=== PATIENT | male | born 1970 | race Two or more races ===

== ENCOUNTER 2020-07-12 20:21 | Emergency (ER) | payer SELFPAY ==
[2020-07-12] MEDS ORDERED: HYDROCODONE/ACETAMINOPHEN 5-325 MG TABLET PO ONE (20:48)
--- NOTE | 2020-07-12 20:51 | ER Document Report ---
ED Medical Screen (RME) - General Chief Complaint: Abdominal Pain Stated Complaint: SHORTNESS OF BREATH Time Seen by Provider: 07/12/20 20:44 Mode of Arrival: Wheelchair Information source: Patient Notes: With sudden onset of right upper quadrant right lower chest pain about an hour prior to arrival. Patient denies any cough, nausea vomiting or diarrhea. Patient without any fever. Patient denies any injury. Patient denies any urinary symptoms. Pain increases with deep inspiration or movement. Patient without any significant underlying medical history. I have greeted and performed a rapid initial assessment of this patient. A comprehensive ED assessment and evaluation of the patient, analysis of test results and completion of the medical decision making process will be conducted by additional ED providers. - Related Data Allergies/Adverse Reactions: No Known Allergies Allergy (Unverified 07/12/20 20:46) Past Medical History - Social History Frequency of alcohol use: None Drug Abuse: None Physical Exam - Vital signs Vitals: Temp Pulse Resp BP Pulse Ox 98.2 F 91 24 H 130/69 H 89 L 07/12/20 20:35 07/12/20 20:35 07/12/20 20:35 07/12/20 20:35 07/12/20 20:35 - General General appearance: Alert In distress: Moderate Notes: Patient appears uncomfortable, splinting with inspiration. - Respiratory Respiratory status: Tachypnea Breath sounds: Other - Diminished to right lower lobe and left lower lobe Course - Vital Signs Vital signs: Temp Pulse Resp BP Pulse Ox 98.2 F 91 24 H 130/69 H 89 L 07/12/20 20:35 07/12/20 20:35 07/12/20 20:35 07/12/20 20:35 07/12/20 20:35
[2020-07-12 21:30] LABS: ABSOLUTE BASOPHILS # (AUTO) 0.1 10^3/uL (0.0-0.2); ABSOLUTE EOSINOPHILS # (AUTO) 0.3 10^3/uL (0.0-0.6); ABSOLUTE LYMPHOCYTES (AUTO) 1.5 10^3/uL (0.5-4.7); ABSOLUTE MONOCYTES (AUTO) 0.5 10^3/uL (0.1-1.4); BASOPHILS % (AUTO) 0.7 % (0-2); EOSINOPHILS % (AUTO) 2.8 % (0-6); HEMATOCRIT 39.5 % (37.9-51.0); HEMOGLOBIN 13.8 g/dL (13.5-17.0); LYMPHOCYTES % (AUTO) 14.5 % (13-45); MEAN CORPUSCULAR HEMOGLOBIN 28.8 pg (27.0-33.4); MEAN CORPUSCULAR HGB CONC 34.9 g/dL (32.0-36.0); MEAN CORPUSCULAR VOLUME 83 fl (80-97); PLATELET COUNT 203 10^3/uL (150-450); RED BLOOD COUNT 4.77 10^6/uL (4.35-5.55); RED CELL DISTRIBUTION WIDTH 13.7 % (11.5-14.0); TOTAL CELLS COUNTED % (AUTO) 100 %; WHITE BLOOD COUNT 10.4 10^3/uL (4.0-10.5)
--- NOTE | 2020-07-12 21:31 | RADIOLOGY REPORT (SQ) ---
EXAM DESCRIPTION: XR ABDOMEN SUPINE AND ERECT WITH CHEST (ABD ACUTE SERIES) COMPLETED DATE/TME: 07/12/2020 21:02 CLINICAL HISTORY: 50 years, Male, RUQ pain COMPARISON: None. TECHNIQUE: Chest x-ray upright and supine views of the abdomen. FINDINGS: Chest x-ray without significant acute findings. Suspected small left lower lobe atelectasis. No evidence for subdiaphragmatic free air. Moderately distended stomach with fluid. Suspected increased fluid in small bowel loops without definite dilatation. [id number] increased colonic stool greater on the right colon. IMPRESSION: 1. Small left lower lobe atelectasis. 2. Nonspecific bowel pattern with increased fluid in stomach and small bowel loops and mild increased colonic stool. No overt significant finding.
[2020-07-12 21:42] LABS: APPEARANCE,URINE SLIGHTLY-CLOUDY; BILIRUBIN,URINE NEGATIVE (NEGATIVE); COLOR,URINE YELLOW; GLUCOSE, URINE NEGATIVE (NEGATIVE); KETONES,URINE NEGATIVE (NEGATIVE); LEUKOCYTE ESTERASE,URINE NEGATIVE (NEGATIVE); NITRITE,URINE NEGATIVE (NEGATIVE); PROTEIN,URINE NEGATIVE (NEGATIVE); URINE SPECIFIC GRAVITY 1.024; UROBILINOGEN,URINE NEGATIVE mg/dL (<2.0)
[2020-07-12 21:48] LABS: ALBUMIN 4.5 g/dL (3.5-5.0); ALKALINE PHOSPHATASE 51 U/L (38-126); ANION GAP 11 (5-19); ASPARTATE AMINO TRANSFERASE 23 U/L (17-59); BILIRUBIN,TOTAL 0.5 mg/dL (0.2-1.3); BLOOD UREA NITROGEN 15 mg/dL (7-20); CALCIUM 9.5 mg/dL (8.4-10.2); CARBON DIOXIDE 22 mmol/L (22-30); CHLORIDE 105 mmol/L (98-107); GLUCOSE 130 mg/dL (75-110); TOTAL PROTEIN 6.8 g/dL (6.3-8.2)
--- NOTE | 2020-07-12 21:49 | ER Document Report ---
ED General - General Chief Complaint: Abdominal Pain Stated Complaint: SHORTNESS OF BREATH Time Seen by Provider: 07/12/20 20:44 Mode of Arrival: Wheelchair - HPI Notes: Patient is a 50-year-old male who presents with shortness of breath and right- sided chest and abdominal pain. It started just prior to arrival in the ER. It is pleuritic. He has pain to his right lower ribs, right upper quadrant, right lower quadrant of his abdomen. It is worse with palpation. He denies any recent illnesses. No cough or cold symptoms. No GI symptoms. No urinary symptoms. No fevers or chills. No abdominal surgeries. Never had any cardiac issues. Non-smoker. - Related Data Allergies/Adverse Reactions: No Known Allergies Allergy (Unverified 07/12/20 20:46) Past Medical History - General Information source: Patient - Social History Smoking Status: Never Smoker Frequency of alcohol use: None Drug Abuse: None Family History: Reviewed & Not Pertinent Patient has homicidal ideation: No Review of Systems - Review of Systems Notes: CONSTITUTIONAL: No fever, fatigue or weight loss. SKIN: No rash. HENT: No congestion, ear pain, or sore throat. EYES: No recent vision problems or eye pain. CARDIOVASCULAR: No edema. Positive for right-sided rib pain. RESPIRATORY: No cough, congestion, or wheezing. Positive for shortness of breath with deep breathing. GASTROINTESTINAL: No nausea, vomiting, bloody stools or diarrhea. Positive for right upper and lower quadrant abdominal pain. GENITOURINARY: No dysuria. MUSCULOSKELETAL: No joint pain or swelling. NEUROLOGIC: No seizures. No headache, focal weakness or sensory changes. HEMATOLOGIC: No unusual bruising or bleeding. PSYCHIATRIC: No depression or anxiety. Physical Exam - Vital signs Vitals: Temp Pulse Resp BP Pulse Ox 98.2 F 91 24 H 130/69 H 89 L 07/12/20 20:35 07/12/20 20:35 07/12/20 20:35 07/12/20 20:35 07/12/20 20:35 - General General appearance: Appears well Notes: VITAL SIGNS: Within normal limits. GENERAL: No acute distress, non-toxic appearance. HEAD: Normal with no signs of head trauma. EYES: EOMI, conjunctiva normal, no discharge. EARS: Hearing grossly intact. NECK: Normal range of motion, no tenderness, supple, no lymphadenopathy, No adenopathy, no JVD. CHEST: Clear breath sounds bilaterally. No wheezes, rales, or rhonchi. CARDIAC: Regular rate and rhythm. S1 and S2, without murmurs, gallops, or rubs. VASCULAR: No Edema. ABDOMEN: Abdomen is soft. No rigidity or guarding. Discomfort to palpation of right upper and lower quadrant. GENITOURINARY: Normal, No tenderness LYMPATHTIC: No lymphadenopathy noted. MUSCULOSKELETAL: Good range of motion of all major joints. Extremities without clubbing, cyanosis or edema. NEUROLOGICAL: Alert and oriented x 3. No focal sensory or strength deficits. Speech normal. Follows commands appropriately. PSYCHIATRIC: Normal Affect, judgement and mood. SKIN: Normal appearance with no rashes or lesions. Course - Re-evaluation Re-evalutation: 07/12/20 22:53 Patient's x-ray was nonspecific. He does have pleuritic chest pain as well as right lower quadrant pain. I did order a CTA of his chest to rule out a PE as well as a CT abdomen pelvis to rule out appendicitis. He is currently on room air. Patient's CT shows right lower lobe and middle lobe pneumonia. He was initially 89% on room air. However, he has been in the high 90s on room air. He ambulated and pulse ox remained in the 90s. Patient states he is not short of breath. He did have an ABG done which showed a low O2. This does not correlate with the patient's presentation. He is 97% on room air as I am reevaluating him. I did offer him admission to the hospital for pneumonia and IV antibiotics. Patient and his daughter declined. They are visiting from [place] and do not want to stay overnight. I do believe this is reasonable. I gave him an IV dose of antibiotics as well as azithromycin. Patient will be discharged on cefdinir and azithromycin. He was instructed to take Tylenol and ibuprofen for pain. Patient was given strict return precautions including shortness of breath, fever, any worsening symptoms. He was instructed to follow-up with his PCP at home. I did offer to do a Covid test but they declined. 07/12/20 22:54 07/13/20 05:17 - Vital Signs Vital signs: Temp Pulse Resp BP Pulse Ox 99.2 F 91 17 140/88 H 99 07/13/20 02:31 07/12/20 20:35 07/13/20 02:44 07/13/20 02:44 07/13/20 02:44 - Laboratory Result Diagrams: 07/12/20 21:06 07/12/20 21:06 Laboratory results interpreted by me: 07/12/20 07/12/20 07/12/20 21:06 21:06 23:36 ABG pO2 67.3 L Glucose 130 H Urine Blood MODERATE H - Diagnostic Test Radiology reviewed: Image reviewed, Reports reviewed - EKG Interpretation by Me EKG shows normal: Sinus rhythm Rate: Normal Rhythm: NSR When compared to previous EKG there are: Previous EKG unavailable Additional EKG results interpreted by me: 07/12/20 21:35 NS rhythm at a rate of 94. QTc 451. No acute ST changes. Significant artifact is present. No previous EKG available for comparison. Discharge - Discharge Clinical Impression: Pulmonary nodule Pneumonia Qualifiers: Pneumonia type: due to unspecified organism Laterality: right Lung location: lower lobe of lung Qualified Code(s): J18.9 - Pneumonia, unspecified organism Condition: Stable Disposition: HOME, SELF-CARE Instructions: Pneumonia (OM) Additional Instructions: Please take your antibiotics as prescribed. You may take Tylenol and ibuprofen for pain. Please return to the ER immediately for any shortness of breath, fevers, worsening symptoms. Please follow-up with your family doctor. Prescriptions: Azithromycin 250 mg PO DAILY 4 Days #4 tablet Cefdinir 300 mg PO BID 10 Days #20 capsule
[2020-07-12] MEDS ORDERED: KETOROLAC TROMETHAMINE INJ/PF 30 MG/1 ML SDV IV ONE (22:16)
--- NOTE | 2020-07-12 22:29 | EKG REPORT ---
SEVERITY:- ABNORMAL ECG - SINUS RHYTHM LEFT ATRIAL ABNORMALITY INCOMPLETE RBBB AND LAFB LEFT VENTRICULAR HYPERTROPHY LATERAL INFARCT, OLD : Confirmed by: Cortney Tenorio MD 12-Jul-2020 22:28:57
[2020-07-13 00:30] LABS: ARTERIAL BLOOD BASE EXCESS -1.2 mmol/L; ARTERIAL BLOOD H2CO3 1.05 mmol/L (1.05-1.35); ARTERIAL BLOOD HCO3 22.5 mmol/L (20-24); ARTERIAL BLOOD PH 7.43 (7.35-7.45); ARTERIAL BLOOD PO2 67.3 mmHg (80-100); ARTERIAL BLOOD TOTAL CO2 23.6 mmol/L (23-27)
[2020-07-13 00:31] LABS: ARTERIAL BLOOD FIO2 ROOM AIR
--- NOTE | 2020-07-13 01:00 | RADIOLOGY REPORT (SQ) ---
CTA CHEST; CT ABDOMEN, AND PELVIS WITH INTRAVENOUS CONTRAST: 07/12/2020 11:55 PM APPLICATION DEVELOPMENT LIAISON HISTORY: 50-year old with right-sided abdominal pain. COMPARISON: None available TECHNIQUE: Axial contiguous images were obtained from the lung apices to the proximal femurs with intravenous intravenous contrast administered. Images of the chest were obtained utilizing a CTA protocol. MIP reconstructed sagittal and coronal images were also obtained. This exam was performed according to our departmental dose-optimization program, which includes automated exposure control, adjustment of the mA and/or KV according to the patient's size and/or use of iterative reconstruction technique. FINDINGS: The heart size is normal in size. No pericardial effusion is seen. The central tracheobronchial tree is patent. The thyroid gland is unremarkable. No significant mediastinal, supraclavicular, or axillary lymphadenopathy is seen. The thoracic aorta is within normal limits in size. The main pulmonary artery is within normal limits of size. There are airspace opacities seen at the right middle and lower lobes. These are associated with some volume loss. There is no evidence of pleural effusions or a pneumothorax. There is a subpleural 5 mm nodule at the left lower lobe on image 94 of 270. No focal filling defect is seen within the pulmonary arteries to suggest a pulmonary embolism. The visualized hepatic parenchyma is unremarkable. No focal enhancing lesion is seen. The gallbladder demonstrates no evidence of calcified gallstones. The spleen is at the upper limits of normal in size.. The pancreas is unremarkable. The bilateral adrenal glands appear unremarkable. Both kidneys demonstrate no evidence of hydronephrosis. No renal or ureteral calcifications are seen. The urinary bladder is mildly distended, and appears grossly unremarkable. The stomach is not well distended. The small bowel loops appear unremarkable. No pericolonic inflammatory stranding is seen. There are multiple diverticula seen within the sigmoid and descending colon, without evidence to suggest diverticulitis. The appendix appears unremarkable. There is no evidence of pneumoperitoneum or free fluid. The aorta and IVC appear normal in size. No significantly enlarged lymph nodes are seen in the abdomen or pelvis. Review of the bone show no evidence of any suspicious lytic or blastic lesions. There are multilevel degenerative changes seen at the thoracic and lumbar spine. IMPRESSION: There consolidative airspace opacity seen at the right middle and lower lobes concerning for infection. No acute intra-abdominal process is seen. No focal filling defect is seen to suggest a pulmonary embolism. There is a 5 mm subpleural nodule present within the lungs which can be followed in one year if the patient is considered high risk.
[2020-07-13] MEDS ORDERED: AZITHROMYCIN 250 MG TABLET PO ONE (01:15)
[2020-07-13] MEDS ORDERED: NORMAL SALINE 1000 ML 1,000 ML IV ONE (01:15)
[2020-07-13] MEDS ORDERED: CEFTRIAXONE 2 GM/D5W RTU 2 GM/50 ML RTUPB IV ONE (01:16)
[2020-07-13] MEDS ORDERED: KETOROLAC TROMETHAMINE INJ/PF 30 MG/1 ML SDV IV ONE (02:07)
[2020-07-13 02:54] VITALS: BP 140/88
== END 2020-07-13 02:54 | disposition home or self-care (01) ==
LOC: EDBD → ER 20:21
DX: J18.9 Pneumonia, unspecified organism (principal); J98.11 Atelectasis; R07.81 Pleurodynia; R91.1 Solitary pulmonary nodule; R06.02 Shortness of breath; R10.11 Right upper quadrant pain; R10.31 Right lower quadrant pain
CPT/HCPCS: 93005; 99285; 96375; 96365; 36415; 82803; 83690; 85025; 80053; 81001; 84484; 74022; 71275; 74177; 93010; J1885 ×2; J7030; J0696